=== PATIENT | female | born 2000 | race Caucasian/White ===

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

== ENCOUNTER 2020-07-24 07:00 | Outpatient (CLI) | payer OTHER ==
[2020-07-24 20:28] LABS: CANDIDA KRUSEI DNA UNRESOLVED (NEGATIVE)
[2020-07-24 20:29] LABS: CANDIDA GROUP DNA UNRESOLVED (NEGATIVE); TRICHOMONAS VAGINALIS DNA UNRESOLVED (NEGATIVE)
== END 2020-07-24 23:59 | disposition home or self-care (01) ==
LOC: LAB.R 07:00
PROVIDERS: ATTEND Advanced Practice Midwife
DX: Z11.3 Encounter for screening for infections with a predominantly sexual mode of transmission (principal); N76.0 Acute vaginitis
CPT/HCPCS: 81599; 87491; 87591; 87661; 87801

== ENCOUNTER 2020-07-31 07:00 | Outpatient (CLI) | payer OTHER ==
[2020-08-01 22:26] LABS: CANDIDA GROUP DNA NEGATIVE (NEGATIVE); CANDIDA KRUSEI DNA NEGATIVE (NEGATIVE); TRICHOMONAS VAGINALIS DNA NEGATIVE (NEGATIVE)
== END 2020-07-31 23:59 | disposition home or self-care (01) ==
LOC: LAB.R 07:00
PROVIDERS: ATTEND Advanced Practice Midwife
DX: N76.0 Acute vaginitis (principal)
CPT/HCPCS: 87661; 87801

== ENCOUNTER 2024-03-24 08:33 | Outpatient (CLI) | payer OTHER | END 2024-03-24 23:59 | disposition EMS.NT | LOC: EMS 08:33 | DX: Z04.1 Encounter for examination and observation following transport accident (principal) ==